=== PATIENT | female | born 2000 | race Caucasian/White ===

== ENCOUNTER 2025-06-16 14:37 | Emergency (ER) | payer OTHER, SELFPAY ==
[2025-06-16 14:43] VITALS: BP 112/63; PULSE 50; RESP 16; TEMP 36.5; O2SAT 100
--- NOTE | 2025-06-16 16:00 | ED_ITS ---
HPI - General Adult General Chief complaint: Unspecified Stated complaint: Needle stick Time Seen by Provider: 06/16/25 15:07 Source: patient Mode of arrival: ambulatory Limitations: no limitations History of Present Illness HPI narrative: Patient is a 24-year-old female who presents the ED with report of accidental needlestick. 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 Employee health was contacted. The patient had his blood tested and was positive for hepatitis B antigens. Patient had her blood tested and was negative for hepatitis-B antibodies. She has received two hepatitis-B vaccines since most recent testing in November of this year. Was referred to the ED for further eval. Tetanus is up-to-date. Related Data Allergies Allergy/AdvReac Type Severity Reaction Status Date / Time No Known Allergies Allergy Verified 06/16/25 14:57 Review of Systems Review of Systems: All systems reviewed & are unremarkable except as noted in HPI. All systems reviewed & are unremarkable except as noted in HPI and below Exam Narrative: GENERAL: Well appearing, well-nourished, non-toxic, in no acute distress. HEAD: Normocephalic, atraumatic. RESPIRATORY: Airway patent, respirations nonlabored. CARDIOVASCULAR: Regular rate and rhythm MUSCULOSKELETAL: Moves all extremities. No gross deformities. SKIN: Warm, dry, normal color. Pinpoint puncture wound to L lateral thumb finger pad. No active bleeding or drainage. NEURO: A&O X3. Speech clear. No ataxic movements. PSYCHIATRIC: Appropriate mood and affect. Normal interaction. Course Vital Signs Vital signs: Vital Signs Temperature 97.7 F 06/16/25 14:43 Pulse Rate 50 L 06/16/25 14:43 Respiratory Rate 16 06/16/25 14:43 Blood Pressure 112/63 06/16/25 14:43 Pulse Oximetry 100 06/16/25 14:43 Temperature 97.7 F 06/16/25 14:43 Pulse Rate 51 L 06/16/25 16:36 Respiratory Rate 14 06/16/25 16:36 Blood Pressure 110/69 06/16/25 16:36 Pulse Oximetry 100 06/16/25 16:36 MDM MDM Narrative Medical decision making narrative: Patient to receive hepatitis-B vaccine and hepatitis-B immunoglobulin in the ED. Advised to follow-up closely with employee health or PCP for subsequent he patitis-B vaccines at appropriate intervals to complete her series. Tetanus is up-to-date. Patient given return precautions. Discharged in stable condition. Differential Diagnosis Differential Diagnosis: Needlestick, foreign body, cellulitis, fracture Medical Records I have reviewed the following patient records and this information was taken into consideration when formulating the assessment and plan.: previous labs, previous ER visits, previous hospitalizations and previous clinic visits Discharge Plan Discharge Clinical Impression: Needlestick injury of finger, Need for post exposure prophylaxis for hepatitis B Patient Disposition: Home Condition: Stable Instructions: Antibiotic Form, Hepatitis B Vaccine (By injection), Hepatitis B Immune Globulin (By injection), Needle Stick Injuries (ED), Hepatitis B (ED) Additional Instructions: Follow-up closely with employee health or your primary care doctor to complete your hepatitis B vaccine series. Patient Language: Wolof Follow-up/Referrals: PHYSICIAN NOT ON STAFF,NONSTAFF [Primary Care Provider] Time of Disposition: 16:08
[2025-06-16] MEDS: HEPATITIS B VIRUS VACCINE 10 MCG/0.5 ML SYRINGE 20 MCG IM (16:11)
[2025-06-16] MEDS: HEPATITIS B IMMUNE GLOBULIN 3.8 ML IM (16:14)
[2025-06-16 16:17] VITALS: BP 127/73; RESP 18; O2SAT 100
[2025-06-16 16:36] VITALS: BP 110/69; PULSE 51; RESP 14; O2SAT 100
== END 2025-06-16 16:38 | disposition home or self-care (01) ==
PROVIDERS: Emergency Provider Physician Assistant
DX: S61.032A Puncture wound without foreign body of left thumb without damage to nail, initial encounter (principal); Z20.5 Contact with and (suspected) exposure to viral hepatitis; Z23 Encounter for immunization; Z29.89 Encounter for other specified prophylactic measures; W46.1XXA Contact with contaminated hypodermic needle, initial encounter
CPT/HCPCS: 90371; 90471; 90744; 96372; 99283; G0010